=== PATIENT | female | born 1990 | race Caucasian/White ===

== ENCOUNTER 2018-10-13 07:20 | Day surgery (SDC) | payer OTHER ==
[~2018-10-13] VITALS: Ht 177.8 cm; Wt 68.0 kg
--- NOTE | ~2018-10-13 | OR ---
[facility] [address], [place] [address] Draft DATE OF OPERATION: 10/13/2018 SURGEON: Lakeshia Angeles MD PREOPERATIVE DIAGNOSES: Pelvic pain, dyspareunia, ParaGard IUD. POSTOPERATIVE DIAGNOSES: Pelvic pain, dyspareunia, ParaGard IUD with pelvic and ovarian endometriosis. PROCEDURES PERFORMED: Laparoscopy with laser fulguration of endometriosis, removal of IUD. ANESTHESIA: General ET. ESTIMATED BLOOD LOSS: 10 mL. DRAINS: None. INDICATIONS AND FINDINGS: The patient is a 28-year-old female, 8, para 3, AB 5, who has been using a ParaGard for control and is having very heavy and painful periods. Her periods have always been heavy and painful, but even worse since the ParaGard. She is also having more pelvic pain overall. She has deep dyspareunia as well. The patient does not wish to have any further . She does not do well on hormonal control and carries a MTHFR mutation. At the time of surgery, exam under anesthesia revealed a normal-size uterus with no adnexal masses. The IUD was easily removed. At the time of laparoscopy, there was endometriosis over the surface of both ovaries, the right greater than left with endometriosis behind the right ovarian fossa and over the right tube. DESCRIPTION OF PROCEDURE: The patient was prepped and draped in the dorsal lithotomy position. An open-sided speculum was placed. The anterior lip of the cervix was visualized and grasped with a single-tooth tenaculum. The IUD was removed easily. Hulka clamp was then placed and tenaculum removed. Attention was directed above. The infraumbilical area was injected with 0.5% Marcaine plain and an incision made with a knife. Each layer was then serially elevated and incised until the fascia was opened and identified. The PATIENT NAME: NEAL TAPIA OPERATIVE REPORT DATE OF : [birth year] REPORT #: [id number] PHYSICIAN: LAKESHIA ANGELES MD PCP: NO PRIMARY CARE PHYSICIAN REPORT IS CONFIDENTIAL AND NOT TO BE RELEASED WITHOUT AUTHORIZATION [facility] [address], [place] [address] Draft peritoneum was opened bluntly and a Adrien cannula placed and tied into place. The balloon was inflated as well. Placement of the scope confirmed proper positioning. CO2 was introduced in the abdomen. When the abdomen was appropriately distended, a 2nd puncture site was made in the left mid abdomen. This area was transilluminated, injected with the Marcaine, incision was made with a knife and a 5 mm port placed under direct vision. The pelvis was then thoroughly visualized and the endometriosis noted. The decision was made to proceed with CO2 laser vaporization. Another puncture site was made in the right mid abdomen. Again, this area was transilluminated, injected with the Marcaine, incision made with a knife and this 5 mm port was placed under direct vision. The fiber was then introduced under continuous power of 10. The patient's right ovary was treated over its surface for treatment of the endometriosis. The patient's right tube was also treated over its surface because of the endometriosis. The area behind the right ovary had diffuse more bubbly appearing endometriosis in this area, it was also treated superficially with the laser. The ureter was easily identified and it was well below the area of involvement with the endometriosis. Following this, the patient's left ovary was treated over its surface for the endometriosis. There was no endometriosis in the left ovarian fossa, the cul-de-sac or the anterior cul-de-sac. The left tube had two large paratubal cysts and these were both drained using the laser. The abdomen was then copiously irrigated and inspected. There was no evidence of any ongoing bleeding or any other endometriosis. The procedure was then terminated with removal of the instruments after allowing as much CO2 as possible to escape. The fascial incision of the umbilicus was reidentified and closed with a running suture of 0 Vicryl. The skin incisions were closed with subcuticular sutures of 3-0 Vicryl Rapide. The instruments were removed from the vagina and the cervix was visualized. There was no evidence of any ongoing bleeding from the tenaculum sites. The patient was then taken to the recovery room in good condition. MD TEMO WhitlockW/MODL /[id number] cc: DOROTHY Hogan Copies: MALENA TREADWELL PATIENT NAME: NEAL TAPIA OPERATIVE REPORT DATE OF : [birth year] REPORT #: [id number] PHYSICIAN: LAKESHIA ANGELES MD PCP: NO PRIMARY CARE PHYSICIAN REPORT IS CONFIDENTIAL AND NOT TO BE RELEASED WITHOUT AUTHORIZATION [address] [address] Draft ~ PATIENT NAME: NEAL TAPIA OPERATIVE REPORT DATE OF : [birth year] REPORT #: [id number] PHYSICIAN: LAKESHIA ANGELES MD PCP: NO PRIMARY CARE PHYSICIAN REPORT IS CONFIDENTIAL AND NOT TO BE RELEASED WITHOUT AUTHORIZATION
[~2018-10-13 07:20] MED LIST: ATIVAN1 MG PO; BUPROPION HCL100 MG PO; CYMBALTA30 MG PO; GABAPENTIN300 MG PO; IBUPROFEN800 MG PO; LATUDA40 MG PO; ULTRAM50 MG PO; ZOFRAN ODT8 MG PO
--- NOTE | 2018-10-13 08:54 | NUR ---
PT ALERT, ORIENTED AND SUPPORTED BY HER JOCELINE. PT WAS RATHER ANXIOUS, AND SEEMED SOMEWHAT DISAPPOINTED THAT DR MAY FOR SOME REASON COULD NOT DO MUCH PT HAD HOPED. GAVE ENCOURAGEMENT, PT REQUESTED PRAYER, AND WAS LAUGHING WHEN I LEFT. WILL FOLLOW NEEDED
--- NOTE | 2018-10-13 11:29 | NUR ---
10/13/18 Melita9 Mikaela Bonilla 1119- PT ARRIVES TO PACU WITH EYES CLOSED, ORAL AIRWAY AND MASK WITH 1O LPM IN PLACE. PT SUCTIONED. PT DOES NOT AROUSE WITH VERBAL STIMULI. 1125- ORAL AIRWAY REMOVED. PT CONT ON 10L O2 VIA MASK, SATS ABOVE 94%. PT COUGHING. PT MORE AWAKE AND STATES, "THROAT HURTS" AND IS PROVIDED MOUTH SWAB. PT HAS PRODUCTIVE COUGH AND SPITS INTO TISSUE.
--- NOTE | 2018-10-13 12:01 | NUR ---
ICED WATER AND JELLO GIVEN. CALL LIGHT W/IN REACH. VINNY WATSON ON WARM. SPOUSE AT BEDSIDE. PATIENT SITTING UP, EATING AND DRINKING AND TOLERATING THAT WELL.
[2018-10-13] MEDS ORDERED: OXYCODONE HCL5 MG PO (12:16)
[2018-10-13] MEDS ORDERED: MOTRIN IB200 MG PO (12:17)
[2018-10-13] MEDS ORDERED: ZOFRAN8 MG PO (12:17)
--- NOTE | 2018-10-13 13:08 | NUR ---
PATIENT UP TO THE BATHROOM WITH RN STANDBY. PATIENT AMBULATES WELL AND VOIDS AND REQ DC HOME. DISCHARGE INSTRUCTIONS ARE GIVEN IN PRESENCE OF SPOUSE AND PATIENT IS GETTING DRESSED IN PRESENCE OF SPOUSE.
--- NOTE | 2018-10-13 13:33 | NUR ---
LE 1320: PATIENT TRANSFERS SELF TO AND THEN TO PERSONAL VEHICLE AND TOLERATES THAT WELL.
== END 2018-10-13 13:20 | disposition home or self-care (01) ==
LOC: DS 07:20
PROVIDERS: Obstetrics & Gynecology
PROC: 0U504ZZ Destruction of Right Ovary, Percutaneous Endoscopic Approach (ICD-10-PCS; 2018-10-13)
PROC: 0U554ZZ Destruction of Right Fallopian Tube, Percutaneous Endoscopic Approach (ICD-10-PCS; principal; 2018-10-13 09:15)
PROC: 0UPD7HZ Removal of Contraceptive Device from Uterus and Cervix, Via Natural or Artificial Opening (ICD-10-PCS; 2018-10-13 09:15)
PROC: 0U964ZZ Drainage of Left Fallopian Tube, Percutaneous Endoscopic Approach (ICD-10-PCS; 2018-10-13 09:15)
DX: N80.1 Endometriosis of ovary (principal); N80.3 Endometriosis of pelvic peritoneum; N83.8 Other noninflammatory disorders of ovary, fallopian tube and broad ligament; N94.5 Secondary dysmenorrhea; N94.12 Deep dyspareunia; J45.20 Mild intermittent asthma, uncomplicated; G43.909 Migraine, unspecified, not intractable, without status migrainosus; G89.29 Other chronic pain; F41.9 Anxiety disorder, unspecified; F12.90 Cannabis use, unspecified, uncomplicated; Z88.0 Allergy status to penicillin
CPT/HCPCS: 00940; J0330; J1100; J1885; J2250; J2405; J2704; J2765; J3010; J7120

== ENCOUNTER 2019-01-26 05:40 | Day surgery (SDC) | payer OTHER ==
[~2019-01-26] VITALS: Ht 177.8 cm; Wt 68.0 kg
--- NOTE | ~2019-01-26 | OR ---
[facility] [address], [place] [address] Draft DATE OF OPERATION: 01/26/2019 SURGEON: Lakeshia Angeles MD TEST RACK OPERATOR: Vikas Farris MD. PREOPERATIVE DIAGNOSES: History of endometriosis, pelvic pain, deep dyspareunia. POSTOPERATIVE DIAGNOSES: History of endometriosis, pelvic pain, deep dyspareunia. PROCEDURES PERFORMED: Total laparoscopic hysterectomy, left salpingectomy, right salpingo-oophorectomy, fulguration of endometriosis, and cystoscopy. ANESTHESIA: General ET. ESTIMATED BLOOD LOSS: 50 mL. DRAINS: Elmore catheter. INDICATIONS AND FINDINGS: The patient is a 28-year-old female, 8, para 3, AB5, who has a history of endometriosis and actually was diagnosed and treated in September of this year. She had endometriosis of the pelvic peritoneum as well as the ovaries. She was treated completely with laser. However, patient declined any hormonal therapy following her initial laparoscopy. She has continued to have ongoing pain and dyspareunia despite her treatment and wishes to proceed with definitive treatment. At the time of surgery, the exam under anesthesia was normal. At the time of laparoscopy, she had evidence of diffuse endometriosis in the pelvic cul-de-sac. There was a small nodule inside the left uterosacral ligament. She had endometriosis over the surface of the left ovary. The left ovary was adhesed to the posterior ovarian fossa and had evidence of endometriosis over its surface. DESCRIPTION OF PROCEDURE: PATIENT NAME: NEAL TAPIA OPERATIVE REPORT DATE OF : [birth year] REPORT #: [id number] PHYSICIAN: LAKESHIA ANGELES MD PCP: NO PRIMARY CARE PHYSICIAN REPORT IS CONFIDENTIAL AND NOT TO BE RELEASED WITHOUT AUTHORIZATION [facility] [address], [place] [address] Draft The patient was prepped and draped in the dorsal lithotomy position. A weighted speculum was placed and the anterior lip of the cervix was visualized and grasped with a single-tooth tenaculum. The cavity sounded 9.5 cm. The endocervical canal was then dilated and a VCare cannula was placed and the balloon inflated at the fundus. The tenaculum and speculum were then removed. The cup was fitted over the cervix and a locking cap was fitted into place. Attention was then directed above. The infraumbilical area was injected with 0.5% Marcaine plain and incision made with a knife. Each layer was then serially elevated and incised until the fascia was opened and identified. Stay sutures of 0 Vicryl were placed. The peritoneum was opened bluntly. The Adrien cannula was then placed and the balloon inflated. I placed the scope and confirmed proper positioning. CO2 was then introduced into the abdomen with gentle pressure. Following this, the pelvis was visualized and a decision was made to proceed with the planned procedure. A secondary port was placed in the left lower quadrant. This was slightly below the level of the umbilicus and lateral. This area was transilluminated, injected with the Marcaine, incision made with a knife, and a 5 mm port was placed under direct vision. Following this, another port was placed on the right side. This area was a little below the umbilicus and lateral. This area was also transilluminated, injected with the Marcaine, and incision was made with a knife. The Veress needle was then placed and the expanding port placed as well. Following this, the LigaSure Maryland device was used to remove the patient's left tube by serially coagulating and dividing the mesosalpinx. This specimen was removed through the right port. Following this, the round ligament was serially coagulated and divided followed by the utero-ovarian pedicle. Following this, the anterior leaf of the peritoneum could be incised allowing a partial bladder flap formation. The perineum was taken out posteriorly as well. She had a large amount of vessels in the uterine area and this required multiple coagulations and divisions until these were all taken care of. Attention was then directed to the patient's right side. Again, the patient's right tube was serially coagulated and divided using the LigaSure device. The specimens were removed through the right hand port as well. The patient's right ovary had been adhesed to the posterior ovarian fossa and this was pulled up and away from this as well. Following this, the round ligament and utero-ovarian pedicle were serially coagulated and divided. This allowed for the anterior leaf of the peritoneum to be incised allowing for creation of the complete bladder flap. The cuff could be seen and felt anteriorly at this point. Further dissection was done allowing this to be further seen. The peritoneum was taken down posteriorly with some difficulty. Eventually, this was able to be brought down over the cuff. Further dissection was done posteriorly as well. The uterine vessels were then serially coagulated and divided on the patient's right side. Following this, the abdomen was irrigated and inspected. There were few areas anteriorly, which required further dissection, but otherwise it was felt that the specimen could be removed. The Sonicision device was used to remove the specimen. This was begun posteriorly and wrapped around anteriorly on the left and then again from posterior to the right. Following this, the specimen was removed from the vagina PATIENT NAME: NEAL TAPIA RADHA OPERATIVE REPORT DATE OF : [birth year] REPORT #: [id number] PHYSICIAN: ALKESHIA ANGELES MD PCP: NO PRIMARY CARE PHYSICIAN REPORT IS CONFIDENTIAL AND NOT TO BE RELEASED WITHOUT AUTHORIZATION [facility] [address], [place] [address] Draft intact. A wet lap and a glove were used to block the vagina and aid in re-formation of the pneumoperitoneum. Attention was redirected to the abdomen and the area was irrigated. There was a bleeding point on the left anterior cuff, which was controlled with the LigaSure device. Following this, the cuff was closed using the Endo Stitch. This was begun at the patient's right uterosacral ligament, taking care to incorporate the vaginal mucosa both posteriorly and anteriorly and run across to the patient's left uterosacral ligament and then back to the center. Because of the raw area overlying the cuff, decision was made to use a 2nd Endo stitch to bring the peritoneum over the center of the cuff. This was begun on the patient's left uterosacral ligament and brought down the peritoneum anteriorly and this was run across to the patient's right uterosacral ligament. Following this, the abdomen was again copiously irrigated, inspected, and the patient's right ovary was then removed given the amount of endometriosis over its surface plus the fact that it had been adhesed into the posterior ovarian fossa. The infundibulopelvic ligament was serially coagulated and then divided. The ovary was then removed using the Maryland device. It was dropped into the pelvis for retrieval later. A 0 PDS Endoloop was then used over the infundibulopelvic ligament to aid in hemostasis. Following this, the endometriosis over the patient's left ovary was treated with a spatula tip cautery. The endometriosis in the cul-de-sac was also treated with a spatula tip cautery. There was somewhat deeper nodule just medial to the patient's left uterosacral ligament and this was grasped and excised using the coagulating scissors. The specimen was sent separately. At this point, the pelvis was again irrigated, inspected, and there was good hemostasis noted. No other endometriosis could be treated. The right posterior ovarian fossa was somewhat raw, but the ureter was also seen of flow right through this area. Following this, the specimen was retrieved through the center port with removal of all the instruments. CO2 was allowed to escape as well. The fascia was reidentified at the umbilicus and was closed with a running suture of 0 Vicryl. The stay sutures were tied across as well. The skin incisions were closed with subcuticular sutures of 3-0 Vicryl Rapide. Cystoscopy was then done. The Elmore catheter was removed and the 30-degree scope was used. The bladder was filled and there was no evidence of any bladder injury. Free spill of urine was seen to come from both of the ureteral orifices. Fluorescein had been given before the cystoscopy, but this dye was not seen at this point. Following this, the bladder was drained and the Elmore catheter replaced. The vaginal pack was removed. All sponge and needle counts were correct. She tolerated procedure well and was taken to the recovery room in good condition. Lakeshia Angeles MD PATIENT NAME: NEAL TAPIA OPERATIVE REPORT DATE OF : [birth year] REPORT #: [id number] PHYSICIAN: LAKESHIA ANGELES MD PCP: NO PRIMARY CARE PHYSICIAN REPORT IS CONFIDENTIAL AND NOT TO BE RELEASED WITHOUT AUTHORIZATION [facility] [address] [place], [place] [address] Draft [facility] /[id number] cc: Vikas Farris MD Copies: VIKAS FARRIS MD ~ PATIENT NAME: REGINANEAL RADHA OPERATIVE REPORT DATE OF : 86 REPORT #: [id number] PHYSICIAN: LAKESHIA ANGELES MD PCP: NO PRIMARY CARE PHYSICIAN REPORT IS CONFIDENTIAL AND NOT TO BE RELEASED WITHOUT AUTHORIZATION
[~2019-01-26 05:40] MED LIST changes: +MOTRIN IB200 MG PO; +OXYCODONE HCL5 MG PO; +ZOFRAN8 MG PO
--- NOTE | 2019-01-26 09:33 | NUR ---
01/26/19 0933 Sussy Dozier 0985 PT ARRIVED TO PACU REACTIVE TO TACTILE STIMULI, VSS. PT DENIES PAIN AND NAUSEA. WARM AIR PLACED UNDER BLANKETS. PT ASLEEP OFF AND ON. 927 O2 REMOVED, PT REORIENTED TO PACU. RESP EVEN AND UNLABORED. 0932 MD AT BEDSIDE TALKING TO PT. PLAN OF CARE DISCUSSED. PT DENIES ANY CONCERNS AT THIS TIME.
--- NOTE | 2019-01-26 10:00 | NUR ---
ICED WATER AND JELLO GIVEN. VINNY WATSON ON WARM. SPOUSE AT PATIENT'S BEDSIDE. CALL LIGHT WITHIN REACH.
--- NOTE | 2019-01-26 10:25 | NUR ---
LE 1000: GLASER BALLOON DEFLATED FOR 10 ML FLUID AND GLASER IS DC WNL. 25 ML BRIGHT YELLOW URINE NOTED TO GLASER OVERNIGHT BAG. PATIENT TOLERATES THIS WELL. 1020: PATIENT PUSHES THE CALL LIGHT AND REPORTS "I NEED TO USE THE BATHROOM." PATIENT AMBULATES TO THE BATHROOM GUARDED AND VOIDS A SCANT AMOUNT OF BRIGHT YELLOW URINE. PATIENT IS BACK IN BED. VINNY HUGGER CONTINUES ON WARM. PATIENT'S SPOUSE REMAINS AT THE BEDSIDE. CALL LIGHT IS WITHIN REACH.
[2019-01-26] MEDS ORDERED: MOTRIN IB200 MG PO (10:37)
[2019-01-26] MEDS ORDERED: ONDANSETRON ODT8 MG PO (10:37)
[2019-01-26] MEDS ORDERED: TYLENOL325 MG PO (10:37)
--- NOTE | 2019-01-26 11:02 | NUR ---
PATIENT IS RIGID AND TEARFUL IN BED. PATIENT REFUSES NARCOTIC PAIN MEDICINE STATING IT INTERFERES WITH HER MENTAL HEALTH. PATIENT REPORTS SHE WILL "DEAL WITH THE PAIN." VINNY WATSON CONTINUES ON WARM. SPOUSE REMAINS AT BEDSIDE.
--- NOTE | 2019-01-26 11:15 | NUR ---
PATIENT PUSHES HER CALL LIGHT AND STATES "CAN YOU JUST LET ME LEAVE? I REALLY WANT TO GO HOME. I WILL SIGN A FORM TO SAY I CAN LEAVE, BUT I REALLY WANT TO GO HOME." PATIENT IS TREMBLING AND HYPERVENTILATING. PATIENT INFORMED I AM GOING TO CALL DR. MAY AND SHE SHAKES HER HEAD YES. DR. MAY IS NOTIFIED AND REPORTS SHE WILL COME TO THE DEPARTMENT.
--- NOTE | 2019-01-26 11:53 | NUR ---
PATIENT IS UP TO THE BATHROOM AND VOIDS 100 ML OF BRIGHT YELLOW URINE NOTED. PATIENT IS BACK IN HER ROOM, TALKING WITH ME AND HER SPOUSE AND IS CALM. DISCHARGE INSTRUCTIONS ARE GIVEN IN PRESENCE OF SPOUSE AND BOTH VERBALIZE UNDERSTANDING. PATIENT GETTING DRESSED IN PRESENCE OF SPOUSE.
--- NOTE | 2019-01-26 12:12 | NUR ---
LE 1205: PATIENT TRANSFERS SELF TO WHEELCHAIR AND TOLERATES THAT WELL.
--- NOTE | 2019-02-01 15:39 | PATH ---
[facility] [address], [place] [address] Signed SPECIMEN(S): A UTERUS, CERVIX, TUBES, RIGHT OVARY SPECIMEN(S): B ENDOMETRIAL BIOPSY SPECIMEN SOURCE: A. UTERUS, CERVIX, TUBES, RIGHT OVARY B. ENDOMETRIAL BIOPSY CLINICAL HISTORY: AB) Secondary dysmenorrhea; dyspareunia; endometriosis. FINAL PATHOLOGIC DIAGNOSIS: A. Uterus, bilateral fallopian tubes, and ovaries, hysterectomy, bilateral salpingectomy and right oophorectomy: - Cervix: - Squamous metaplasia. - Nabothian cysts. - Endometrium: Secretory phase. - Myometrium: No microscopic pathologic diagnosis. - Right and left fallopian tubes: Multiple paratubal cysts, bilateral. - Right ovary: Follicle cysts and corpus albicans. B. "Endometriosis nodule": - Consistent with endometriosis. LJA:glc:C____ MICROSCOPIC EXAMINATION: Histologic sections of all submitted blocks are examined by light microscopy. These findings, together with the gross examination, support the pathologic diagnosis. Immunostain for CD10 is obtained along with appropriately positive controls on material from cassettes A3 and B1: Material from A3 is negative for CD10, consistent with a lack of endometrial stromal cells. There are two small tiny aggregates of CD10 positive cells suspicious for endometrial stromal cells in B1. Additional levels are obtained, with the areas of the CD10 aggregates expanding, morphologically consistent with endometrial stromal cells. - LJA:glc GROSS DESCRIPTION: Two specimens are received in two containers, labeled "BH." A. The specimen, labeled "BH, uterus, cervix, bilateral tubes, and right PATIENT NAME: NEAL TAPIA PATHOLOGY DATE OF : [birth year] REPORT #: [id number] PHYSICIAN: MARQUIS WOLF PCP: NO PRIMARY CARE PHYSICIAN REPORT IS CONFIDENTIAL AND NOT TO BE RELEASED WITHOUT AUTHORIZATION [facility] [address] [place], [place] [address] Signed ovary," is received in formalin and consists of a 158-gram uterus (11.0 x 7.0 x 6.0 cm) and cervix (3.2 x 3.0 cm) with a slit-like os (1.5 cm in diameter). The serosa and ectocervix are perdomo-pink, smooth, and glistening. The specimen is opened to show a patent endocervical canal and a 3.5 x 2.5 cm perdomo-pink and hemorrhagic endometrial cavity with a thickness of up to 0.3 cm. The myometrium is perdomo-pink and coarsely trabeculated with a thickness of up to 2.4 cm. No discrete endometrial or myometrial lesions are identified. Also in the container are two unoriented fallopian tubes and a right ovary. Fallopian tube #1 measures 9.5 cm in length by 0.5 cm in diameter and is remarkable for two paratubal cysts ranging from 1.5 to 1.6 cm in greatest dimension. The cysts contain clear serous fluid with thin smooth-lined graham. Fallopian tube #2 measures 7.0 cm in length by 0.5 cm in diameter, and is remarkable for a 2.1 x 1.5 x 1.0 cm perdomo-white deflated cyst. Further sectioning shows perdomo-white cut surfaces with a pinpoint lumen. The ovary weighs 10.0 grams and measures 4.0 x 3.0 x 2.0 cm. The external surface is perdomo-pink and cribriform with an intact capsule. Sectioning shows perdomo-white and pink perdomo-white cut surfaces with numerous cysts ranging from 0.3 to 0.5 cm in greatest dimension. The cysts contain clear serous fluid with thin smooth-lined graham. No other discrete lesions are grossly identified. Display Mechanic sections are submitted as follows: (A1) Anterior and posterior cervix (A2) Anterior and posterior uterine wall (A3) Fallopian tube #1 (A4) Fallopian tube #2 (A5-A6) Right ovary B. The specimen, labeled "BH, endometriosis nodule," is received in formalin and consists of a 1.0 x 0.5 x 0.4 cm perdomo-yellow soft tissue fragment. The specimen is entirely submitted in cassette (B1). AR (under the direct supervision of a pathologist) The Gross Description was prepared using a voice recognition system. The report was reviewed for accuracy; however, sound-alike word errors, addition and/or deletions may occur. If there is any question about this report, please contact Client Services. ADDITIONAL NOTES: PATIENT NAME: NEAL TAPIA PATHOLOGY DATE OF : [birth year] REPORT #: [id number] PHYSICIAN: MARQUIS PATHOLOGY PCP: NO PRIMARY CARE PHYSICIAN REPORT IS CONFIDENTIAL AND NOT TO BE RELEASED WITHOUT AUTHORIZATION [facility] [address] [place] [id number] Signed Immunohistochemical and/or in situ hybridization studies were performed on this case with the appropriate positive controls that react as expected. This test was developed and its performance characteristics determined by [facility] ([facility] It has not been cleared or approved by the U.S. Food and Drug Administration. The FDA has determined that such clearance or approval is not necessary. This test is used for clinical purposes. It should not be regarded as investigational or for research. [facility] is certified under the Clinical Laboratory Improvement Amendments of 1988 (CLIA) as qualified to perform high complexity clinical laboratory testing. PERFORMING LABORATORY: The technical component was performed by [facility] ([facility]), [address] [place] [id number] (Network Systems Consultant: Nargis Solomon MD; CLIA# [id number]). Professional interpretation was performed by [facility], [address] [place] [id number] (Network Systems Consultant: Lebron Parsons MD; CLIA# [id number]). Diagnostician: Lebron Parsons MD Pathologist Electronically Signed 02/01/2019 Copies: ~ PATIENT NAME: NEAL TAPIA PATHOLOGY DATE OF : [birth year] REPORT #: [id number] PHYSICIAN: MARQUIS WOLF PCP: NO PRIMARY CARE PHYSICIAN REPORT IS CONFIDENTIAL AND NOT TO BE RELEASED WITHOUT AUTHORIZATION
== END 2019-01-26 12:05 | disposition home or self-care (01) ==
LOC: DS 05:40
PROVIDERS: Obstetrics & Gynecology
PROC: 0UT94ZZ Resection of Uterus, Percutaneous Endoscopic Approach (ICD-10-PCS; principal; 2019-01-26 06:45)
PROC: 0UT04ZZ Resection of Right Ovary, Percutaneous Endoscopic Approach (ICD-10-PCS; 2019-01-26 06:45)
PROC: 0UT74ZZ Resection of Bilateral Fallopian Tubes, Percutaneous Endoscopic Approach (ICD-10-PCS; 2019-01-26 06:45)
PROC: 0U514ZZ Destruction of Left Ovary, Percutaneous Endoscopic Approach (ICD-10-PCS; 2019-01-26 06:45)
DX: N87.9 Dysplasia of cervix uteri, unspecified (principal); N80.1 Endometriosis of ovary; N83.01 Follicular cyst of right ovary; N94.12 Deep dyspareunia; F31.60 Bipolar disorder, current episode mixed, unspecified; J45.909 Unspecified asthma, uncomplicated; G43.909 Migraine, unspecified, not intractable, without status migrainosus; Z88.0 Allergy status to penicillin
CPT/HCPCS: 00840; 88305; 88307; 88342; J0131; J0694; J1100; J1644; J1885; J2250; J2405; J2704; J2765; J3010; J7060; J7120